=== PATIENT | male | born 1975 | race Caucasian/White ===

== ENCOUNTER 2021-03-11 12:14 | Emergency (ER) | payer SELFPAY ==
[~2021-03-11] VITALS: Ht 172.7 cm; Wt 158.8 kg
== END 2021-03-11 13:31 | disposition home or self-care (01) ==
LOC: ER 12:19
DX: H66.92 Otitis media, unspecified, left ear (principal); H60.12 Cellulitis of left external ear; F17.210 Nicotine dependence, cigarettes, uncomplicated
CPT/HCPCS: 99282

== ENCOUNTER 2021-03-19 14:58 | Emergency (ER) | payer SELFPAY ==
[~2021-03-19] VITALS: Ht 172.7 cm; Wt 158.8 kg
== END 2021-03-19 16:08 | disposition home or self-care (01) ==
LOC: ER 15:40
DX: T16.2XXA Foreign body in left ear, initial encounter (principal)
CPT/HCPCS: 99282